=== PATIENT | female | born 1980 | race Caucasian/White ===

== ENCOUNTER 2017-08-26 18:49 | Emergency (ER) | payer MEDICAID ==
[2017-08-26 18:50] VITALS: BMI 39.1
[2017-08-26 18:58] VITALS: BP 129/87; PULSE 86; RESP 17; TEMP 97.9; O2SAT 98
--- NOTE | 2017-08-26 19:12 | ED PDOC ---
Arrival/HPI - General Chief Complaint: Female Genitourinary Time Seen by Provider: 08/26/17 18:58 Historian: Patient - History of Present Illness Narrative History of Present Illness (Text): 08/26/17 19:08 37yo female with no PMHx present with complaint of grayish vaginal discharge. Notes she had unprotected sex few weeks ago, and worried that she might have STD. She denies nausea, vomiting, fever, back pain, dysuria, abdominal pain, hematuria, urinary frequency, any other complaint. Past Medical History - Provider Review Nursing Documentation Reviewed: Yes - Infectious Disease Hx of Infectious Diseases: None - Tetanus Immunization Tetanus Immunization: Unknown - Psychiatric Hx Depression: No Hx Emotional Abuse: No Hx Physical Abuse: No Hx Substance Use: No - Surgical History Hx Section: Yes (x2) Hx Tubal Ligation: Yes Other/Comment: R knee sx, - Anesthesia Hx Anesthesia: Yes Hx Anesthesia Reactions: No - Suicidal Assessment Feels Threatened In Home Enviroment: No Family/Social History - Physician Review Nursing Documentation Reviewed: Yes Family/Social History: Unknown Family HX Smoking Status: Never Smoked Hx Alcohol Use: No Hx Substance Use: No Hx Substance Use Treatment: No Allergies/Home Meds Allergies/Adverse Reactions: Allergies shellfish derived Allergy (Verified 08/26/17 18:54) VOMITING Home Medications: Home Meds Medication Instructions Recorded Confirmed No Known Home Med 03/21/13 08/26/17 Review of Systems - Physician Review All systems were reviewed & negative as marked: Yes - Review of Systems Constitutional: Normal Eyes: Normal ENT: Normal Respiratory: Normal Cardiovascular: Normal Gastrointestinal: Normal Genitourinary Female: Frequency, Vaginal Discharge. absent: Dysuria, Hematuria Musculoskeletal: Normal Skin: Normal Neurological: Normal Endocrine: Normal Hemo/Lymphatic: Normal Psychiatric: Normal Physical Exam Vital Signs Reviewed: Yes Vital Signs Temp Pulse Resp BP Pulse Ox 08/26/17 18:58 97.9 F 86 17 129/87 98 Temperature: Afebrile Blood Pressure: Normal Pulse: Regular Respiratory Rate: Normal Appearance: Positive for: Well-Appearing, Non-Toxic, Comfortable Pain Distress: None Mental Status: Positive for: Alert and Oriented X 3 - Systems Exam Head: Present: Atraumatic, Normocephalic Pupils: Present: PERRL Extroacular Muscles: Present: EOMI Conjunctiva: Present: Normal Mouth: Present: Moist Mucous Membranes Neck: Present: Normal Range of Motion Respiratory/Chest: Present: Clear to Auscultation, Good Air Exchange. No: Respiratory Distress, Accessory Muscle Use Cardiovascular: Present: Regular Rate and Rhythm, Normal S1, S2. No: Murmurs Abdomen: Present: Normal Bowel Sounds. No: Tenderness, Distention, Peritoneal Signs, Rebound, Guarding, McBurney's Point Tender, Rovsing's Sign Present Back: Present: Normal Inspection. No: CVA Tenderness Upper Extremity: Present: Normal Inspection. No: Cyanosis, Edema Lower Extremity: Present: Normal Inspection. No: Edema Neurological: Present: GCS=15, CN II-XII Intact, Speech Normal Skin: Present: Warm, Dry, Normal Color. No: Rashes Psychiatric: Present: Alert, Oriented x 3, Normal Insight, Normal Concentration Medical Decision Making ED Course and Treatment: 08/26/17 23:28 UA negative PT was hemodynamcially stable PT was treated for Gono/chlamydia Advised to avoid sex, until she gets her result and if positive have the sexual partner treated before having sex. - Lab Interpretations Lab Results: Lab Results 08/26/17 19:00: Urine Color Yellow, Urine Appearance Clear, Urine pH 7.0, Ur Specific [place] 1.020, Urine Protein Negative, Urine Glucose (UA) Negative, Urine Ketones Negative, Urine Blood Negative, Urine Nitrate Negative, Urine Bilirubin Negative, Urine Urobilinogen 0.2, Ur Leukocyte Esterase Negative - Medication Orders Current Medication Orders: Discontinued Medications Azithromycin (Zithromax) 1,000 mg PO STAT STA PRN Reason: Protocol Stop: 08/26/17 19:48 Last Admin: 08/26/17 19:57 Dose: 1,000 mg Ceftriaxone Sodium (Rocephin) 250 mg IM STAT STA PRN Reason: Protocol Stop: 08/26/17 19:48 Last Admin: 08/26/17 19:57 Dose: 250 mg IM Administration Charges Document 08/26/17 19:57 JOY (Rec: 08/26/17 19:57 JOY [id number]) Injection Site MAR Injection Site Right Deltoid Charges for Administration # of IM Administrations 1 Disposition/Present on Arrival - Present on Arrival Any Indicators Present on Arrival: No History of DVT/PE: No History of Uncontrolled Diabetes: No Urinary Catheter: No History of Decub. Ulcer: No History Surgical Site Infection Following: None - Disposition Have Diagnosis and Disposition been Completed?: Yes Diagnosis: Vaginal discharge Disposition: HOME/ ROUTINE Disposition Time: 19:50 Patient Plan: Discharge Condition: STABLE Discharge Instructions (ExitCare): Vaginal Discharge (ED) Additional Instructions: Follow up with medical record in 3days Return to ED for any new symptoms Referrals: [facility] [Outside] - Follow up with primary Forms: [employer] (Belizean)
[2017-08-26 19:37] LABS: URINE BILIRUBIN NEGATIVE (NEGATIVE); URINE BLOOD NEGATIVE (NEGATIVE); URINE GLUCOSE (UA) NEGATIVE (NEGATIVE); URINE KETONE NEGATIVE (NEGATIVE); URINE LEUKOCYTE ESTERASE NEGATIVE Leu/uL (NEGATIVE); URINE PROTEIN NEGATIVE mg/dL (<30 mg/dL); URINE UROBILINOGEN 0.2 E.U./dL (<1 E.U./dL)
[2017-08-26 19:42] LABS: URINE APPEARANCE CLEAR (CLEAR); URINE COLOR YELLOW (YELLOW)
[2017-08-26] MEDS ORDERED: cefTRIAXone (Rocephin) 250 mg Inj IM STA (19:47)
[2017-08-26] MEDS ORDERED: Lidocaine 1% Inj (20ml) ONE (19:56)
== END 2017-08-26 20:11 | disposition home or self-care (01) ==
LOC: ED 18:49
DX: N89.8 Other specified noninflammatory disorders of vagina (principal)
CPT/HCPCS: 81003; 87491; 87591; 96372; 99283; J0696

== ENCOUNTER 2018-02-18 17:44 | Emergency (ER) | payer MEDICAID ==
[2018-02-18 17:52] VITALS: BMI 38.2
[2018-02-18 18:21] VITALS: TEMP 98.3; O2SAT 100
--- NOTE | 2018-02-18 18:30 | ED PDOC ---
Arrival/HPI - General Chief Complaint: Back Pain Time Seen by Provider: 02/18/18 17:50 Historian: Patient - History of Present Illness Narrative History of Present Illness (Text): 02/18/18 18:27 37yo female with no PMHx who present with one week history of right sided upper back pain. States pain is usually with movement, deep inspiration. She did not take any medication for the pain. she denies fever, cough, chest pain, SOB, diaphoresis, trauma, urinary symptoms, any other complaint. Past Medical History - Provider Review Nursing Documentation Reviewed: Yes - Infectious Disease Hx of Infectious Diseases: None - Tetanus Immunization Tetanus Immunization: Unknown - Psychiatric Hx Depression: No Hx Emotional Abuse: No Hx Physical Abuse: No Hx Substance Use: No - Surgical History Hx Section: Yes (x2) Hx Tubal Ligation: Yes Other/Comment: R knee sx, - Anesthesia Hx Anesthesia: Yes Hx Anesthesia Reactions: No - Suicidal Assessment Feels Threatened In Home Enviroment: No Family/Social History - Physician Review Nursing Documentation Reviewed: Yes Family/Social History: Unknown Family HX Smoking Status: Never Smoked Hx Alcohol Use: No Hx Substance Use: No Hx Substance Use Treatment: No Allergies/Home Meds Allergies/Adverse Reactions: Allergies shellfish derived Allergy (Verified 08/26/17 18:54) VOMITING Review of Systems - Physician Review All systems were reviewed & negative as marked: Yes - Review of Systems Constitutional: Normal Eyes: Normal ENT: Normal Respiratory: Normal Cardiovascular: Normal Gastrointestinal: Normal Genitourinary Female: Normal Musculoskeletal: Back Pain Skin: Normal Neurological: Normal Endocrine: Normal Hemo/Lymphatic: Normal Psychiatric: Normal Physical Exam Vital Signs Reviewed: Yes Vital Signs Temp Pulse Resp BP Pulse Ox 02/18/18 18:20 98.3 F 85 18 132/75 100 Temperature: Afebrile Blood Pressure: Normal Pulse: Regular Respiratory Rate: Normal Appearance: Positive for: Well-Appearing, Non-Toxic, Comfortable Pain Distress: None Mental Status: Positive for: Alert and Oriented X 3 - Systems Exam Head: Present: Atraumatic, Normocephalic Pupils: Present: PERRL Extroacular Muscles: Present: EOMI Conjunctiva: Present: Normal Mouth: Present: Moist Mucous Membranes Neck: Present: Normal Range of Motion Respiratory/Chest: Present: Clear to Auscultation, Good Air Exchange. No: Respiratory Distress, Accessory Muscle Use Cardiovascular: Present: Regular Rate and Rhythm, Normal S1, S2. No: Murmurs Abdomen: No: Tenderness, Distention, Peritoneal Signs Back: Present: Paraspinal Tenderness (right parathoracic tenderness). No: Midline Tenderness, Pain with Leg Raise Upper Extremity: Present: Normal Inspection. No: Cyanosis, Edema Lower Extremity: Present: Normal Inspection. No: Edema Neurological: Present: GCS=15, CN II-XII Intact, Speech Normal Skin: Present: Warm, Dry, Normal Color. No: Rashes Psychiatric: Present: Alert, Oriented x 3, Normal Insight, Normal Concentration Medical Decision Making ED Course and Treatment: 02/18/18 20:13 Pt in ED for stated history. She was comfortable and hemodynamically stable in ED. Her pain was reproducible in ED.Pt's pain is likely MS. Her pain improved in Ed with medication. Thoracic spine xray - No acute finding Right ribs/CXR- No fx. No PTX Result was DW the pt and she was referred to her PMD. Ibuprofen and flexeril rx given. - RAD Interpretation Radiology Orders: 02/18/18 17:56 DORSAL (THORACIC) SPINE [RAD] Stat 02/18/18 17:57 RIBS RIGHT & PA CHEST [RAD] Stat - Medication Orders Current Medication Orders: Discontinued Medications Cyclobenzaprine HCl (Flexeril) 10 mg PO STAT STA Stop: 02/18/18 19:15 Last Admin: 02/18/18 19:55 Dose: 10 mg Ketorolac Tromethamine (Toradol) 60 mg IM STAT STA Stop: 02/18/18 19:15 Last Admin: 02/18/18 19:55 Dose: 60 mg MAR Pain Assessment Document 02/18/18 19:55 MS (Rec: 02/18/18 19:58 MS [id number]) Pain Reassessment Is this a pain reassessment? No Sleep Is patient sleeping during reassessment? No Presence of Pain Presence of Pain Yes Pain Scale Used Pain Scale Used Numeric Location Left, Right or Bilateral Right Upper or Lower Lower Pain Location Body Site Back Description Description Intermittent Pain Behavior Guarding IM Administration Charges Document 02/18/18 19:55 MS (Rec: 02/18/18 19:58 MS [id number]) Injection Site MAR Injection Site Right Deltoid Charges for Administration # of IM Administrations 1 Disposition/Present on Arrival - Present on Arrival Any Indicators Present on Arrival: No History of DVT/PE: No History of Uncontrolled Diabetes: No Urinary Catheter: No History of Decub. Ulcer: No History Surgical Site Infection Following: None - Disposition Have Diagnosis and Disposition been Completed?: Yes Diagnosis: Thoracic back sprain Disposition: HOME/ ROUTINE Disposition Time: 20:05 Patient Plan: Discharge Patient Problems: Current Active Problems Problem Status Onset Thoracic back sprain Acute Condition: STABLE Discharge Instructions (ExitCare): Low Back Pain in Adults Additional Instructions: Follow up with your doctor Return to ED for any new or worsening symptoms Prescriptions: Cyclobenzaprine [Cyclobenzaprine HCl] 10 mg PO TID #12 tab Ibuprofen [Motrin Tab] 600 mg PO Q6 #20 tab Referrals: [facility] [place] [Outside] - Follow up with primary Forms: [employer] (Khmer)
[2018-02-18 20:29] VITALS: BP 130/80; PULSE 83; RESP 16
--- NOTE | 2018-02-19 08:15 | RAD ---
HISTORY: right sided upper back pain COMPARISON: No prior. Correlation made with concurrent radiographs of the chest and right rib series. FINDINGS: BONES: No evidence of acute compression fractures nor retropulsed fragments DISC SPACES: Disc space heights relatively maintained. No significant degenerative spondylosis SOFT TISSUES: Normal. OTHER FINDINGS: None. IMPRESSION: No acute compression fractures no retropulsed fragments.
--- NOTE | 2018-02-19 08:18 | RAD ---
PROCEDURE: Radiographs of the Chest and Right Ribs. HISTORY: Right rib series COMPARISON: Correlation made with concurrent radiographs of the thoracic spine TECHNIQUE: Frontal radiograph of the chest and multiple oblique radiographs of the right ribs were obtained. FINDINGS: RIGHT RIBS: No evidence of acute displaced right rib fracture. LUNGS: Lung higuera are clear without evidence of consolidation PLEURA: No pneumothorax or significant pleural fluid. CARDIOVASCULAR: Normal sized heart. No pulmonary vascular congestion. OTHER FINDINGS: None. IMPRESSION: No evidence of acute displaced right rib fracture. No acute cardiopulmonary disease.
== END 2018-02-18 20:28 | disposition home or self-care (01) ==
LOC: ED 17:44
DX: S23.9XXA Sprain of unspecified parts of thorax, initial encounter (principal); X58.XXXA Exposure to other specified factors, initial encounter; Y92.9 Unspecified place or not applicable
CPT/HCPCS: 71101; 72070; 96372; 99283; J1885